=== PATIENT | female | born 1990 | race African-American/Black ===

== ENCOUNTER 2016-12-21 08:18 | Emergency (ER) | payer OTHER ==
[2016-12-21 08:20] VITALS: BP 120/57
--- NOTE | 2016-12-21 08:42 | PHYS DOC ---
Past Medical History Past Medical History: Other Additional Past Medical Histor: ulcers Past Surgical History: No Surgical History Alcohol Use: Occasionally Drug Use: Marijuana Adult General Chief Complaint Chief Complaint: RING REMOVAL HPI HPI Patient is a 26 year old female presents emergency room with a complaint of ringing systolic on her left middle finger and right ring finger since last night. She states she was unable to manually remove them herself. She denies any other concerns at this time. Review of Systems Review of Systems Constitutional: Denies fever or chills [] Eyes: Denies change in visual acuity, redness, or eye pain [] HENT: Denies nasal congestion or sore throat [] Respiratory: Denies cough or shortness of breath [] Cardiovascular: No additional information not addressed in HPI [] GI: Denies abdominal pain, nausea, vomiting, bloody stools or diarrhea [] : Denies dysuria or hematuria [] Musculoskeletal: Denies back pain or joint pain [] Integument: Denies rash or skin lesions [] Neurologic: Denies headache, focal weakness or sensory changes [] Endocrine: Denies polyuria or polydipsia [] Allergies Allergies Allergies Coded Allergies Type Severity Reaction Last Updated Verified No Known Drug Allergies 02/19/14 No Physical Exam Physical Exam Constitutional: Well developed, well nourished, no acute distress, non-toxic appearance. [] HENT: Normocephalic, atraumatic, bilateral external ears normal, oropharynx moist, no oral exudates, nose normal. [] Eyes: PERRLA, EOMI, conjunctiva normal, no discharge. [] Neck: Normal range of motion, no tenderness, supple, no stridor. [] Cardiovascular:Heart rate regular rhythm, no murmur [] Lungs & Thorax: Bilateral breath sounds clear to auscultation [] Abdomen: Bowel sounds normal, soft, no tenderness, no masses, no pulsatile masses. [] Skin: Warm, dry, no erythema, no rash. [] Back: No tenderness, no CVA tenderness. [] Extremities: Right ring finger left ring finger post-ring removal by nurse shows no evidence of skin injury. Flexion and extension function of both the PIPJ and DIPJ's is preserved and normal. Both fingers are neurovascularly intact with capillary refill less than 2 seconds. Neurologic: Alert and oriented X 3, normal motor function, normal sensory function, no focal deficits noted. [] Psychologic: Affect normal, judgement normal, mood normal. [] Current Patient Data Vital Signs Vital Signs Date Time Temp Pulse Resp B/P Pulse Ox O2 Delivery O2 Flow Rate FiO2 12/21/16 08:20 98.6 80 18 98 Room Air 98.6 EKG EKG [] Radiology/Procedures Radiology/Procedures [] Course & Med Decision Making Course & Med Decision Making Pertinent Labs and Imaging studies reviewed. (See chart for details) [] Dragon Disclaimer Dragon Disclaimer This electronic medical record was generated, in whole or in part, using a voice recognition dictation system. Departure Departure Impression: Primary Impression: Foreign body Disposition: HOME, SELF-CARE Condition: IMPROVED Referrals: ELISA VALADEZ MD (PCP) Additional Instructions: 1. In. The rings were removed without injury or skin. There is no evidence of tendon problems to your fingers. There's no evidence of neurovascular problems. 2. Follow-up with your primary care doctor through any questions or concerns about your fingers. SURAJ MONTEZ Dec 21, 2016 08:42
== END 2016-12-21 08:46 | disposition home or self-care (01) ==
LOC: ER 08:18
DX: S60.454A Superficial foreign body of right ring finger, initial encounter (principal); S60.453A Superficial foreign body of left middle finger, initial encounter; F12.10 Cannabis abuse, uncomplicated; W45.8XXA Other foreign body or object entering through skin, initial encounter; Y93.89 Activity, other specified; Y92.89 Other specified places as the place of occurrence of the external cause; Y99.8 Other external cause status
CPT/HCPCS: 99284

== ENCOUNTER 2017-12-19 01:36 | Emergency (ER) | payer OTHER | END 2017-12-19 02:10 | disposition home or self-care (01) | LOC: ER 01:36 | DX: S63.92XA Sprain of unspecified part of left wrist and hand, initial encounter (principal); M79.642 Pain in left hand; M25.532 Pain in left wrist; F12.10 Cannabis abuse, uncomplicated; X58.XXXA Exposure to other specified factors, initial encounter; Y93.89 Activity, other specified; Y99.8 Other external cause status; Y92.89 Other specified places as the place of occurrence of the external cause | CPT/HCPCS: 29125; 73130; 99284 ==

== ENCOUNTER 2018-09-12 06:26 | Emergency (ER) | payer OTHER ==
[~2018-09-12] VITALS: Ht 157.5 cm; Wt 90.7 kg
[2018-09-12 06:26] VITALS: BP 158/87
[2018-09-12] MEDS ORDERED: IBUP-1060 PO (06:40)
[2018-09-12] MEDS ORDERED: AZIT250T6 PO (06:40)
[2018-09-12] MEDS ORDERED: HYDR-3164 PO (06:40)
--- NOTE | 2018-09-12 06:42 | PHYS DOC ---
Past Medical History Past Medical History: Other Additional Past Medical Histor: ulcers Past Surgical History: No Surgical History Alcohol Use: None Drug Use: None Adult General Chief Complaint Chief Complaint: SORE THROAT HPI HPI Patient is a 27 year old female who presents with sore throat. She has been ill over the last 3 days. She complains of primarily a sore throat and some difficulty with swallowing. She also endorses some cough that has been productive of yellow and green sputum. She has no documented fever but does have chills. Her child in the home has also been ill. Patient is otherwise healthy with no chronic conditions. No nausea or vomiting. No abdominal pain. Her last menstrual period was 10 days earlier. Review of Systems Review of Systems Constitutional: Denies fever Eyes: Denies change in visual acuity HENT: Denies nasal congestion or sore throat Respiratory: Denies shortness of breath Cardiovascular: No additional information not addressed in HPI GI: Denies abdominal pain, nausea, vomiting : Denies dysuria or hematuria Musculoskeletal: Denies back pain or joint pain Integument: Denies rash or skin lesions Neurologic: Denies headache All other systems were reviewed and found to be within normal limits, except as documented in this note. Current Medications Current Medications Current Medications Medications (Trade) Dose Ordered Sig/Geraldo Start Time Stop Time Status Last Admin Dose Admin Azithromycin (Zithromax) 500 mg 1X ONCE 09/12/18 06:45 09/12/18 06:46 Allergies Allergies Allergies Coded Allergies Type Severity Reaction Last Updated Verified No Known Drug Allergies 02/19/14 No Physical Exam Physical Exam Constitutional: Well developed, well nourished, no acute distress, non-toxic appearance HENT: Normocephalic, atraumatic, bilateral external ears normal, oropharynx moist, no oral exudates, nose normal, posterior oral pharynx is injected with exudates present Eyes: PERRLA, EOMI, conjunctiva normal, no discharge Neck: Normal range of motion, no tenderness, supple, no stridor, + anterior cervical chain LAD Cardiovascular:Heart rate regular rhythm, no murmur Lungs & Thorax: Bilateral breath sounds clear to auscultation Skin: Warm, dry, no erythema Neurologic: Alert and oriented X 3 Psychologic: Affect normal EKG EKG [] Radiology/Procedures Radiology/Procedures [] Course & Med Decision Making Course & Med Decision Making Pertinent Labs and Imaging studies reviewed. (See chart for details) 06:35: Patient seen and examined. PE suspicious for strep with exudates and injection in posterior oral pharynx. She is given azithromycin 500 mg in the ER and Rx for 250 daily over next four days. Ibuprofen and few norco for severe pain. Opiate precautions discussed. All of her questions answered prior to d/c. Return precautions discussed and patient advised to f/u with PCP or return to ER for any new or worsening symptoms. Megha Disclaimer Megha Disclaimer This electronic medical record was generated, in whole or in part, using a voice recognition dictation system. Departure Departure Impression: Primary Impression: Pharyngitis Disposition: HOME, SELF-CARE Condition: GOOD Patient Instructions: Strep Throat Scripts Hydrocodone/Apap 5-325 (NORCO 5-325 TABLET) 1 Each Tablet 1-2 EACH PO PRN Q6HRS PRN for SEVERE PAIN, #10 as needed for pain Prov: RHODA PABOL DO 09/12/18 Ibuprofen (IBUPROFEN) 800 Mg Tablet 800 MG PO PRN TID PRN for PAIN, #20 TAB take with food or milk to avoid upsetting stomach Prov: RHODA PABLO DO 09/12/18 Azithromycin (AZITHROMYCIN TABLET) 250 Mg Tablet 250 MG PO DAILY for ANTI-BIOTIC for 4 Days, #4 TAB 0 Refills Prov: RHODA PABLO DO 09/12/18 RHODA PABLO DO Sep 12, 2018 06:42
[2018-09-12] MEDS ORDERED: AZITHROMYCIN 250 MG TABLET. PO ONE (06:45)
== END 2018-09-12 06:51 | disposition home or self-care (01) ==
LOC: ER 06:26
DX: J02.9 Acute pharyngitis, unspecified (principal); R13.10 Dysphagia, unspecified; R05 Cough
CPT/HCPCS: 99283; Q0144

== ENCOUNTER 2019-02-12 01:07 | Emergency (ER) | payer OTHER ==
[~2019-02-12] VITALS: Ht 160 cm; Wt 108.9 kg
[~2019-02-12 01:07] MED LIST: AZIT250T6 PO; HYDR-3164 PO; IBUP-1060 PO
[2019-02-12 01:47] VITALS: BP 122/73
[2019-02-12 02:25] LABS: BILIRUBIN,URINE NEGATIVE (NEG); CLARITY,URINE CLEAR; COLOR,URINE YELLOW; NITRITE,URINE NEGATIVE (NEG); PH,URINE 6.5; PROTEIN,URINE NEGATIVE (NEG-TRACE); UROBILINOGEN,URINE 0.2 mg/dL (0.2 mg/dL)
[2019-02-12 02:31] LABS: BACTERIA,URINE MODERATE /HPF (0-FEW); RBC,URINE 0 /HPF (0-2); SQUAMOUS EPITHELIAL CELL,UR FEW /LPF
--- NOTE | 2019-02-12 03:04 | PHYS DOC ---
Past Medical History Past Medical History: Depression, Ectopic , Other Additional Past Medical Histor: ULCERS, SCOLIOSIS Past Surgical History: Other Additional Past Surgical Histo: D&C, FALLOPIAN TUBE REMOVAL Alcohol Use: Occasionally Drug Use: Marijuana Adult General Chief Complaint Chief Complaint: PELVIC PAIN [facility] HPI Patient is a 28 year old female who presents today due to chief complaint of left pelvic pain. Patient states that she was concerned that she had an ectopic in the past. Patient states that she recently started having unprotected sex with a new partner. Patient states that she took a test at home which was negative but then later became positive. Although that safely Review of Systems Review of Systems Constitutional: Denies fever or chills [] Eyes: Denies change in visual acuity, redness, or eye pain [] HENT: Denies nasal congestion or sore throat [] Respiratory: Denies cough or shortness of breath [] Cardiovascular: No additional information not addressed in HPI [] GI: Complains of left pelvic pain : Denies dysuria or hematuria [] Musculoskeletal: Denies back pain or joint pain [] Integument: Denies rash or skin lesions [] Neurologic: Denies headache, focal weakness or sensory changes [] All other systems were reviewed and found to be within normal limits, except as documented in this note. Allergies Allergies Allergies Coded Allergies Type Severity Reaction Last Updated Verified acetaminophen Allergy Unknown 02/12/19 Yes oxycodone Allergy Unknown 02/12/19 Yes Physical Exam Physical Exam Constitutional: Well developed, well nourished, no acute distress, non-toxic appearance. HENT: Normocephalic, atraumatic, normocaphalic Eyes: PERRL, EOMI Neck: Normal range of motion, no tenderness, supple Cardiovascular:Heart rate regular rhythm, no murmur Resp: Bilateral breath sounds clear to auscultation Abdomen: Left otic tenderness Skin: Warm, dry, no erythema, no rash. Back: No tenderness, no CVA tenderness. Extremities: No tenderness, ROM intact, no edema. Neurologic: Alert and oriented X 3, normal motor function, normal sensory function, no focal deficits noted. Psychologic: Affect normal, judgement normal, mood normal. Current Patient Data Vital Signs Vital Signs Date Time Temp Pulse Resp B/P (MAP) Pulse Ox O2 Delivery O2 Flow Rate FiO2 02/12/19 01:47 97.6 64 18 122/73 (89) 98 Room Air 97.6 Lab Values Laboratory Tests Test 02/12/19 01:10 02/12/19 01:33 Urine Collection Type Unknown Urine Color Yellow Urine Clarity Clear Urine pH 6.5 Urine Specific [place] 1.010 Urine Protein Negative mg/dL (NEG-TRACE) Urine Glucose (UA) Negative mg/dL (NEG) Urine Ketones (Stick) Negative mg/dL (NEG) Urine Blood Negative (NEG) Urine Nitrite Negative (NEG) Urine Bilirubin Negative (NEG) Urine Urobilinogen Dipstick 0.2 mg/dL (0.2 mg/dL) Urine Leukocyte Esterase Trace (NEG) Urine RBC 0 /HPF (0-2) Urine WBC 1-4 /HPF (0-4) Urine Squamous Epithelial Cells Few /LPF Urine Bacteria Moderate /HPF (0-FEW) POC Urine HCG, Qualitative Hcg negative (Negative) EKG EKG [] Radiology/Procedures Radiology/Procedures [] Course & Med Decision Making Course & Med Decision Making Pertinent Labs reviewed. (See chart for details) Ordered UA, urine , ultrasound of the pelvis. Urine is negative. UA does not show UTI. Once patient follow that she was not she wants to leave the ED. Patient does not want ultrasound but states that she will follow-up with her PCP as an outpatient. Patient does not want any further testing.Discussed results and plan of care with patient. Patient is instructed to follow up with PCP in one to 2 days. Appropriate discharge instructions given to patient to return to the ED or to seek immediate medical evaluation. Dragon Disclaimer Dragon Disclaimer This electronic medical record was generated, in whole or in part, using a voice recognition dictation system. Departure Departure Impression: Primary Impression: Pelvic pain Ruled Out: Disposition: HOME, SELF-CARE Condition: STABLE Patient Instructions: Pelvic Pain, Female LA GILL DO February 12, 2019 03:03
--- NOTE | 2019-02-12 03:25 | RAD ---
Indication:Left lower quadrant pain for one week. History of left ectopic and tubal removal. TECHNIQUE: Grayscale, color Doppler and spectral waveform images of the pelvis obtained. COMPARISON: None FINDINGS: The uterus is anteverted and measures 10.0 x 4.1 x 5.3 cm. Endometrial stripe measures 8 mm in thickness. No endometrial vascularity. Nabothian cysts are seen in the cervix. Right ovary measures 1.7 x 2.8 x 1.1 cm and shows evidence of blood flow. Left ovary measures 3.5 x 2.1 x 2.8 cm with multiple follicles and shows evidence of blood flow. There is a thick walled centrally cystic lesion measuring 1.8 x 2.0 x 1.0 cm. No free pelvic fluid. IMPRESSION: 1. Bilateral ovaries demonstrate evidence of blood flow. 2. Likely Complex cyst/hemorrhagic cyst in the left ovary. Follow-up ultrasound in 8-12 weeks recommended. Electronically signed by: Stevie Sims DO (02/12/2019 3:22 AM) [facility]
== END 2019-02-12 03:12 | disposition home or self-care (01) ==
LOC: ER 01:07
DX: R10.2 Pelvic and perineal pain (principal); F32.9 Major depressive disorder, single episode, unspecified; Z88.6 Allergy status to analgesic agent; Z88.5 Allergy status to narcotic agent
CPT/HCPCS: 76830; 76856; 81001; 81025; 87086; 87186; 99285-25

== ENCOUNTER → 2021-01-23 | Outpatient (CLI) | payer OTHER ==
--- NOTE | 2021-01-23 11:55 | KCIC ---
Exam Date: 01/23/2021 11:05 AM XR LUMBAR SPINE 4+V, XR HIP (WITH OR WITHOUT PELVIS) 1 VIEW Indication: Reason: Acute LBP w/bilateral hip pain. No known injury. / Spl. Instructions: / History: FINDINGS/ IMPRESSION: Lumbar spine: There is levoscoliosis of the lumbar spine. There is no spondylolisthesis. The vertebral body height s are maintained without evidence of compression fracture. Disc spaces are maintained. No pars defec t is seen on either side. The SI joints appear normal. The visualized soft tissues are within normal limits. Pelvis and bilateral hips: No acute fracture or dislocation. Alignment and joint spaces are maintained. Calcifications in the pe lvis are consistent with phleboliths. Soft tissues are otherwise within normal limits. Electronically signed by: Garrett Ahumada MD (01/23/2021 11:52 AM) [id number]
== END ==
LOC: KCIC 11:00
PROVIDERS: ATTEND Family Medicine
DX: M54.5 Low back pain (principal); M25.552 Pain in left hip; M25.551 Pain in right hip
CPT/HCPCS: 72110; 73521

== ENCOUNTER 2021-01-29 12:57 | Emergency (ER) | payer OTHER ==
[~2021-01-29] VITALS: Ht 160 cm; Wt 110.0 kg
[2021-01-29 14:52] LABS: BILIRUBIN,URINE NEGATIVE (NEG); CLARITY,URINE CLOUDY; COLOR,URINE YELLOW; NITRITE,URINE NEGATIVE (NEG); PROTEIN,URINE NEGATIVE (NEG-TRACE); UROBILINOGEN,URINE 0.2 mg/dL (0.2 mg/dL)
[2021-01-29 15:00] LABS: RBC,URINE 0 /HPF (0-2); WBC,URINE >40 /HPF (0-4)
[2021-01-29 15:01] LABS: BACTERIA,URINE FEW /HPF (0-FEW)
--- NOTE | 2021-01-29 16:49 | RAD ---
Exam: Ultrasound OB less than 14 weeks Indication: Vaginal bleeding and Technique: Real-time grayscale and color Doppler images of the pelvis were obtained by the department medicare specialist. Comparisons: None FINDINGS: Uterus measures 9 x 8 x 6 cm. Within the endometrium there is a gestational sac with internal yolk sa c and pole. pole measures 4 mm. This corresponds to 6 weeks 0 days gestation. heart rate is measured at 82 bpm. Right ovary is not identified. Left ovary measures 4.1 x 3.1 x 2.4 cm. Vascular flow identified within the left ovary. No free fluid identified in the pelvis. IMPRESSION: 1. Single live intrauterine gestation which measures 6 weeks 0 days by current ultrasound. Correlate with LMP. 2. Dedicated survey is recommended to 18-20 weeks gestation. Electronically signed by: Raul Agarwal MD (01/29/2021 4:46 PM) YOHANNES
[2021-01-29 16:59] LABS: BASO % 1 % (0-3); EOS # 0.2 x10^3/uL (0.0-0.7); EOS % 3 % (0-3); HEMATOCRIT 36.4 % (36.0-47.0); HEMOGLOBIN 11.9 g/dL (12.0-15.5); LYMPH # 2.1 x10^3/uL (1.0-4.8); LYMPH % 29 % (24-48); MEAN CORPUSCULAR HEMOGLOBIN 28 pg (25-35); MEAN CORPUSCULAR HGB CONC 33 g/dL (31-37); MEAN CORPUSCULAR VOLUME 85 fL (79-100); MONO # 0.8 x10^3/uL (0.0-1.1); MONO % 11 % (0-9); NEUT % 56 % (31-73); PLATELET COUNT 377 x10^3/uL (140-400); RED BLOOD COUNT 4.26 x10^6/uL (3.50-5.40); RED CELL DISTRIBUTION WIDTH 16.6 % (11.5-14.5); WHITE BLOOD COUNT 7.1 x10^3/uL (4.0-11.0)
[2021-01-29 17:10] LABS: CALCIUM 8.7 mg/dL (8.5-10.1); CREATININE 0.8 mg/dL (0.6-1.0); GFR 103.3; POTASSIUM 3.7 mmol/L (3.5-5.1)
[2021-01-29 17:16] LABS: ALBUMIN 2.9 g/dL (3.4-5.0); ALBUMIN/GLOBULIN RATIO 0.6 (1.0-1.7); TOTAL BILIRUBIN 0.3 mg/dL (0.2-1.0); TOTAL PROTEIN 7.4 g/dL (6.4-8.2)
[2021-01-29 17:55] VITALS: BP 149/80
[2021-01-29] MEDS ORDERED: CEPH500T PO (18:05)
--- NOTE | 2021-01-29 18:05 | PHYS DOC ---
Past Medical History Past Medical History: Arthritis, Depression, Ectopic , Other Additional Past Medical Histor: ULCERS, SCOLIOSIS Past Surgical History: Other Additional Past Surgical Histo: D&C,L FALLOPIAN TUBE REMOVAL Smoking Status: Never Smoker Alcohol Use: Occasionally Drug Use: Marijuana General Adult EDM: Chief Complaint: ABDOMINAL PAIN IN HPI: HPI: Patient is a 30 year old female 4 para 2 with 2 ectopic pregnancies who presents to the ED today complaining of cramping intermittent mild right lower quadrant pain that she states has been going on for days. Patient not specific at how many days. She states she has had similar pain multiple times before. She states she did a home test today and it was positive, her last menstrual cycle she states was December 18. Patient states she had a little bit of spotting today. Denies this being the worst pain in her life. Denies anything specifically exacerbating or relieving her pain. Review of Systems: Review of Systems: Constitutional: Denies fever or chills. [] GI: Reports right lower quadrant cramping pain, denies nausea, vomiting, bloody stools or diarrhea. [] : Denies dysuria. [] Musculoskeletal: Denies back pain or joint pain. [] Integument: Denies rash. [] Neurologic: Denies headache, focal weakness or sensory changes. [] Psychiatric: Denies depression or anxiety. [] Heart Score: C/O Chest Pain: N/A Risk Factors: Risk Factors: DM, Current or recent (<one month) smoker, HTN, HLP, family his tory of CAD, obesity. Risk Scores: Score 0 - 3: 2.5% MACE over next 6 weeks - Discharge Home Score 4 - 6: 20.3% MACE over next 6 weeks - Admit for Clinical Observation Score 7 - 10: 72.7% MACE over next 6 weeks - Early Invasive Strategies Allergies: Allergies: Allergies Coded Allergies Type Severity Reaction Last Updated Verified acetaminophen Allergy Unknown 02/12/19 Yes oxycodone Allergy Unknown 02/12/19 Yes Physical Exam: PE: Constitutional: Well developed, well nourished, no acute distress, non-toxic appearance. [] Abdomen: Bowel sounds normal, soft, no tenderness, no masses, no pulsatile masses. [] Skin: Warm, dry, no erythema, no rash. [] Back: No tenderness, no CVA tenderness. [] Extremities: No tenderness, no cyanosis, no clubbing, ROM intact, no edema. [] Neurologic: Alert and oriented X 3, normal motor function, normal sensory function, no focal deficits noted. [] Psychologic: Affect normal, judgement normal, mood normal. [] Current Patient Data: Labs: Laboratory Tests Test 01/29/21 12:55 01/29/21 14:39 01/29/21 16:50 Urine Collection Type Unknown Urine Color Yellow Urine Clarity Cloudy Urine pH 6.0 (<5.0-8.0) Urine Specific [place] 1.025 (1.000-1.030) Urine Protein Negative mg/dL (NEG-TRACE) Urine Glucose (UA) Negative mg/dL (NEG) Urine Ketones (Stick) 15 mg/dL (NEG) Urine Blood Negative (NEG) Urine Nitrite Negative (NEG) Urine Bilirubin Negative (NEG) Urine Urobilinogen Dipstick 0.2 mg/dL (0.2 mg/dL) Urine Leukocyte Esterase Large (NEG) Urine RBC 0 /HPF (0-2) Urine WBC >40 /HPF (0-4) Urine Squamous Epithelial Cells Few /LPF Urine Bacteria Few /HPF (0-FEW) Urine Mucus Slight /LPF POC Urine HCG, Qualitative Hcg positive (Negative) White Blood Count 7.1 x10^3/uL (4.0-11.0) Red Blood Count 4.26 x10^6/uL (3.50-5.40) Hemoglobin 11.9 g/dL (12.0-15.5) L Hematocrit 36.4 % (36.0-47.0) Mean Corpuscular Volume 85 fL (79-100) Mean Corpuscular Hemoglobin 28 pg (25-35) Mean Corpuscular Hemoglobin Concent 33 g/dL (31-37) Red Cell Distribution Width 16.6 % (11.5-14.5) H Platelet Count 377 x10^3/uL (140-400) Neutrophils (%) (Auto) 56 % (31-73) Lymphocytes (%) (Auto) 29 % (24-48) Monocytes (%) (Auto) 11 % (0-9) H Eosinophils (%) (Auto) 3 % (0-3) Basophils (%) (Auto) 1 % (0-3) Neutrophils # (Auto) 4.0 x10^3/uL (1.8-7.7) Lymphocytes # (Auto) 2.1 x10^3/uL (1.0-4.8) Monocytes # (Auto) 0.8 x10^3/uL (0.0-1.1) Eosinophils # (Auto) 0.2 x10^3/uL (0.0-0.7) Basophils # (Auto) 0.0 x10^3/uL (0.0-0.2) Maternal Serum HCG Beta Subunit 9225 mIU/mL (0-5) H Sodium Level 142 mmol/L (136-145) Potassium Level 3.7 mmol/L (3.5-5.1) Chloride Level 107 mmol/L (98-107) Carbon Dioxide Level 26 mmol/L (21-32) Anion Gap 9 (6-14) Blood Urea Nitrogen 11 mg/dL (7-20) Creatinine 0.8 mg/dL (0.6-1.0) Estimated GFR (Cockcroft-Gault) 103.3 BUN/Creatinine Ratio 14 (6-20) Glucose Level 83 mg/dL (70-99) Calcium Level 8.7 mg/dL (8.5-10.1) Total Bilirubin 0.3 mg/dL (0.2-1.0) Aspartate Amino Transferase (AST) 22 U/L (15-37) Alanine Aminotransferase (ALT) 41 U/L (14-59) Alkaline Phosphatase 82 U/L (46-116) Total Protein 7.4 g/dL (6.4-8.2) Albumin 2.9 g/dL (3.4-5.0) L Albumin/Globulin Ratio 0.6 (1.0-1.7) L Laboratory Tests 01/29/21 16:50 Laboratory Tests 01/29/21 16:50 Vital Signs: Vital Signs Date Time Temp Pulse Resp B/P (MAP) Pulse Ox O2 Delivery O2 Flow Rate FiO2 01/29/21 15:55 98.7 94 20 156/81 (106) 100 Room Air 98.7 EKG: EKG: [] Radiology/Procedures: Radiology/Procedures: []PROCEDURE: OB <14 WKS W/TV Exam: Ultrasound OB less than 14 weeks Indication: Vaginal bleeding and Technique: Real-time grayscale and color Doppler images of the pelvis were obtained by the department boom cat operator. Comparisons: None FINDINGS: Uterus measures 9 x 8 x 6 cm. Within the endometrium there is a gestational sac with internal yolk sac and pole. pole measures 4 mm. This corresponds to 6 weeks 0 days gestation. heart rate is measured at 82 bpm. Right ovary is not identified. Left ovary measures 4.1 x 3.1 x 2.4 cm. Vascular flow identified within the left ovary. No free fluid identified in the pelvis. IMPRESSION: 1. Single live intrauterine gestation which measures 6 weeks 0 days by current ultrasound. Correlate with LMP. 2. Dedicated survey is recommended to 18-20 weeks gestation. Electronically signed by: Raul Ortiz MD (01/29/2021 4:46 PM) [facility] DICTATED and SIGNED BY: RAUL ORTIZ MD DATE: 01/29/21 [id number] 0 Course & Med Decision Making: Course & Med Decision Making Pertinent Labs and Imaging studies reviewed. (See chart for details) This is a 30-year-old female patient presenting today complaining of abdominal pain in . Last mental cycle was December 18. Positive urine hCG. Beta-hCG 9225. Urine analysis positive for UTI. Blood group A+. CBC with a normal WBC, hemoglobin 11.9 hematocrit is normal OB ultrasound shows singel live intrauterine gestation HR 82, 6 weeks 0 days Patient discharged on cephalexin. Encouraged to follow-up with OB. Provided return precautions. Pelvic rest also recommended if she is spotting or bleeding Dragon Disclaimer: Dragon Disclaimer: This electronic medical record was generated, in whole or in part, using a voice recognition dictation system. Departure Departure Impression: Primary Impression: Abdominal pain in Qualified Codes: O26.891 - Other specified related conditions, first trimester; R10.9 - Unspecified abdominal pain Additional Impression: Urinary tract infection Qualified Codes: N39.0 - Urinary tract infection, site not specified Disposition: 01 HOME / SELF CARE / HOMELESS Condition: STABLE Referrals: Di THOMAS MD (PCP) JAIDEN COOK MD follow up with your OBGYN as soon as possible Patient Instructions: Abdominal Pain, - Urinary Tract Infection Additional Instructions: You were evaluated in the emergency room, your ultrasound shows you are 6 weeks today. You have urinary tract infection. Please take the prescribed antibiotics until completed. Please maintain pelvic rest that includes no sex, no heavy lifting, no strenuous activities until you see the BRAND ATTENDANT or the bleeding/spotting has stopped. Come back to the ED at any point symptoms worsen. You also have urinary tract infection, ensure you complete your antibiotics Scripts Cephalexin (CEPHALEXIN) 500 Mg Tablet 1 TAB PO BID, #14 TAB Prov: TANJA LEDEZMA APRN 01/29/21 TANJA LEDEZMA APRN Jan 29, 2021 18:05
== END 2021-01-29 18:26 | disposition home or self-care (01) ==
LOC: ER 12:57
DX: O23.41 Unspecified infection of urinary tract in pregnancy, first trimester (principal); R10.31 Right lower quadrant pain; M19.90 Unspecified osteoarthritis, unspecified site; F32.9 Major depressive disorder, single episode, unspecified; F12.90 Cannabis use, unspecified, uncomplicated; Z98.890 Other specified postprocedural states; Z88.5 Allergy status to narcotic agent; Z88.8 Allergy status to other drugs, medicaments and biological substances; Z3A.01 Less than 8 weeks gestation of pregnancy
CPT/HCPCS: 36415; 76801; 76817; 80053; 81001; 81025; 84702; 85025; 86850; 86900; 86901; 87086; 99284

== ENCOUNTER 2021-05-23 08:37 | Emergency (ER) | payer OTHER ==
[~2021-05-23] VITALS: Ht 160 cm; Wt 113.4 kg
[~2021-05-23 08:37] MED LIST changes: +CEPH500T PO
[2021-05-23 09:05] VITALS: BP 152/92
[2021-05-23] MEDS ORDERED: IBUPROFEN 400 MG TABLET. PO ONE (10:00)
[2021-05-23 10:24] LABS: BILIRUBIN,URINE NEGATIVE (NEG); CLARITY,URINE CLEAR; COLOR,URINE YELLOW; NITRITE,URINE NEGATIVE (NEG); PROTEIN,URINE NEGATIVE (NEG-TRACE); U PREG PATIENT NEGATIVE (NEG); UROBILINOGEN,URINE 0.2 mg/dL (0.2 mg/dL)
--- NOTE | 2021-05-23 10:30 | RAD ---
XR CHEST 1V History: Reason: cough, fever, COVID-19 EXPOSURE / Spl. Instructions: / History: Comparison: None. Findings: Mild ill-defined left mid and bibasilar opacities. No pleural effusion. No pneumothorax. Normal heart size. Impression: 1. Mild ill-defined left mid and bibasilar opacities, may represent atelectasis or infiltrates inclu ding viral pneumonia. Electronically signed by: Hay Cee DO (05/23/2021 10:27 AM) [id number]
[2021-05-23 10:38] LABS: RBC,URINE TNTC /HPF (0-2)
[2021-05-23 10:39] LABS: BACTERIA,URINE MANY /HPF (0-FEW)
[2021-05-23 10:46] LABS: TRICHOMONAS,URINE PRESENT
--- NOTE | 2021-05-23 12:04 | PHYS DOC ---
Past Medical History Past Medical History: Arthritis, Depression, Ectopic , Other Additional Past Medical Histor: ULCERS, SCOLIOSIS Past Surgical History: Other Additional Past Surgical Histo: L fallopian tube removed Smoking Status: Never Smoker Alcohol Use: Occasionally Drug Use: Marijuana General Adult EDM: Chief Complaint: FLU SYMPTOM HPI: HPI: Patient is a 30 year old female who present to ER with fever cough for 2 days. Patient said her who she was exposed to was tested positive for COVID-19 yesterday. Patient denies any trouble breathing, no chest pain, no abdominal pain, no nausea vomiting. Review of Systems: Review of Systems: Constitutional: Positive for fever Eyes: Denies change in visual acuity. [] HENT: Denies nasal congestion or sore throat. [] Respiratory: Positive for cough, no trouble with breathing Cardiovascular: Denies chest pain or edema. [] GI: Denies abdominal pain, nausea, vomiting, bloody stools or diarrhea. [] : Denies dysuria. [] Musculoskeletal: Denies back pain or joint pain. [] Integument: Denies rash. [] Neurologic: Denies headache, focal weakness or sensory changes. [] Endocrine: Denies polyuria or polydipsia. [] Lymphatic: Denies swollen glands. [] Psychiatric: Denies depression or anxiety. [] Heart Score: C/O Chest Pain: N/A Risk Factors: Risk Factors: DM, Current or recent (<one month) smoker, HTN, HLP, family history of CAD, obesity. Risk Scores: Score 0 - 3: 2.5% MACE over next 6 weeks - Discharge Home Score 4 - 6: 20.3% MACE over next 6 weeks - Admit for Clinical Observation Score 7 - 10: 72.7% MACE over next 6 weeks - Early Invasive Strategies Current Medications: Current Medications Medications (Trade) Dose Ordered Sig/Geraldo Start Time Stop Time Status Last Admin Dose Admin Ibuprofen (Motrin) 800 mg 1X ONCE 05/23/21 10:00 05/23/21 10:01 DC 05/23/21 09:52 800 MG Allergies: Allergies: Allergies Coded Allergies Type Severity Reaction Last Updated Verified acetaminophen Allergy Unknown 02/12/19 Yes oxycodone Allergy Unknown 02/12/19 Yes Physical Exam: PE: Constitutional: Well developed, well nourished, no acute distress, non-toxic appearance. [] HENT: Normocephalic, atraumatic, bilateral external ears normal, oropharynx mois t, no oral exudates, nose normal. [] Eyes: PERRLA, EOMI, conjunctiva normal, no discharge. [] Neck: Normal range of motion, no tenderness, supple, no stridor. [] Cardiovascular:Heart rate regular rhythm, no murmur [] Lungs & Thorax: Bilateral breath sounds clear to auscultation [] Abdomen: Bowel sounds normal, soft, no tenderness, no masses, no pulsatile masses. [] Skin: Warm, dry, no erythema, no rash. [] Back: No tenderness, no CVA tenderness. [] Extremities: No tenderness, no cyanosis, no clubbing, ROM intact, no edema. [] Neurologic: Alert and oriented X 3, normal motor function, normal sensory function, no focal deficits noted. [] Psychologic: Affect normal, judgement normal, mood normal. [] Current Patient Data: Labs: Laboratory Tests Test 05/23/21 09:55 05/23/21 10:00 SARS-CoV-2 Antigen (Rapid) Positive (NEGATIVE) *A Urine Collection Type Void Urine Color Yellow Urine Clarity Clear Urine pH 6.0 (<5.0-8.0) Urine Specific [place] 1.015 (1.000-1.030) Urine Protein Negative mg/dL (NEG-TRACE) Urine Glucose (UA) Negative mg/dL (NEG) Urine Ketones (Stick) 15 mg/dL (NEG) Urine Blood Large (NEG) Urine Nitrite Negative (NEG) Urine Bilirubin Negative (NEG) Urine Urobilinogen Dipstick 0.2 mg/dL (0.2 mg/dL) Urine Leukocyte Esterase Trace (NEG) Urine RBC Tntc /HPF (0-2) Urine WBC 5-10 /HPF (0-4) Urine Squamous Epithelial Cells Mod /LPF Urine Bacteria Many /HPF (0-FEW) Urine Mucus Mod /LPF Urine Trichomonas Present Urine Test Negative (NEG) Vital Signs: Vital Signs Date Time Temp Pulse Resp B/P (MAP) Pulse Ox O2 Delivery O2 Flow Rate FiO2 05/23/21 09:05 100.8 100 20 152/92 100 Room Air 100.8 EKG: EKG: [] Radiology/Procedures: Radiology/Procedures: [][facility] [address] [place] [address] IMAGING REPORT Signed PATIENT: DOLORES AGRAWAL LACCOUNT: [id number] : 1990 LOCATION: ER AGE: 30 SEX: F EXAM STATUS: REG ER ORD. PHYSICIAN: MUNIR CORONADO DO REASON: cough, fever, COVID-19 EXPOSURE PROCEDURE: CHEST AP ONLY XR CHEST 1V History: Reason: cough, fever, COVID-19 EXPOSURE / Spl. Instructions: / History: Comparison: None. Findings: Mild ill-defined left mid and bibasilar opacities. No pleural effusion. No pneumothorax. Normal heart size. Impression: 1. Mild ill-defined left mid and bibasilar opacities, may represent atelectasis or infiltrates including viral pneumonia. Electronically signed by: Hay Cee DO (05/23/2021 10:27 AM) [id number] DICTATED and SIGNED BY: HAY CEE DO DATE: 05/23/21 [id number] Course & Med Decision Making: Course & Med Decision Making Pertinent Labs and Imaging studies reviewed. (See chart for details) Patient vital signs was stable, chest x-ray showed some infiltration, patient was tested positive for COVID-19. Patient did not require to be admitted to hospital because her oxygen saturation 100% room air Dragon Disclaimer: Dragon Disclaimer: This electronic medical record was generated, in whole or in part, using a voice recognition dictation system. Departure Departure Impression: Primary Impression: Pneumonia due to COVID-19 virus Disposition: 01 HOME / SELF CARE / HOMELESS Condition: STABLE Referrals: Di THOMAS MD (PCP) Follow up with your doctor as needed Patient Instructions: Pneumonia, Adult Additional Instructions: You have been tested for or diagnosed with COVID-19. It is an infection caused by a new type of coronavirus. COVID-19 will cause cold-like or mild flu symptoms in most. It can cause more severe symptoms like problems breathing in some. There is no treatment for COVID-19. The body will clear the infection over time. Self-care will help to ease discomfort. Steps to Take: Self-Care Rest as needed. Healthy habits may help you feel better. Steps include: Choose healthy foods including fruits and vegetables. Drink water throughout the day. Get plenty of sleep each night. If you smoke, try to quit. It may ease breathing. Avoid alcohol. Keep Others Healthy The virus can spread to others. Droplets are released every time you sneeze or cough. The droplets can get into the mouth, nose, or eyes of people near you and lead to infection. To lower the chances of spreading COVID-19 to others: Stay at home until your doctor has said it is safe to leave. If you tested posi tive this will mean staying isolated until both of the following are true: At least 7 days have passed since the start of illness. You are free of fever for at least 72 hours without the use of medicine. During this time: - Avoid public areas, events, or transportation. Do not return to work or school until your doctor has said it is safe to do so. - Call ahead if you need to go to a medical center. Let them know you may have COVID-19. It will help them guide you where to go. They may also ask you to wear a facemask when you come to the office. - If you call for emergency medical services, let them know you may have COVID-19. While at home: - Try to avoid close contact with others. Stay about 6 feet away. - If possible, spend most of your time in a separate room from others. - Use a face mask if you will be in close contact with others such as sharing a room or vehicle. - Have someone wipe down common surfaces in the home. Use household tunneling machine operator every day on areas like doorknobs, counters, or sinks. - Cough or sneeze into a tissue. Throw the tissue away right after use. If a tissue is not available, cough or sneeze into your elbow. - Wash your hands often. Wash them after sneezing or coughing. Use soap and water and wash for at least 20 seconds. Alcohol based hand fur dry cleaner can be used if soap and water is not available. - Do not prepare food for others. Avoid sharing personal items like forks, spoons, or toothbrushes. - Avoid close contact with pets while you are sick. There is no evidence of the virus passing to pets. This is a safety step until more is known about this virus. Isolation can be frustrating. Social interaction can help. Keep in touch with friends and family through phone and tech options. You can still interact with others in your home, just keep a safe distance of about 6 feet. Follow-up: Your doctors office will check in with you to see if there are any changes in your health. You may be asked to keep track of symptoms to share with them. They will also let you know when you are clear to be in public again. Problems to Look Out For: Contact your doctor if your recovery is not going as you expect. Get emergency care if you have problems such as: - Trouble breathing - Nonstop chest pain or pressure - Changes in awareness, confusion, or problems waking - Lips or face have bluish color - Worsening of symptoms If you think you have an emergency, call for emergency medical services right away. As taken from [facility] Prednisone (PREDNISONE) 20 Mg Tablet 1 TAB PO DAILY for 10 Days, #10 TAB Prov: MUNIR CORONADO DO 05/23/21 Azithromycin (ZITHROMAX) 250 Mg Tablet 1 PKG PO UD, #6 TAB Prov: MUNIR CORONADO DO 05/23/21 MUNIR CORONADO DO May 23, 2021 12:04
[2021-05-23] MEDS ORDERED: AZIT250T PO (12:13)
[2021-05-23] MEDS ORDERED: PRED20TA PO (12:13)
== END 2021-05-23 12:27 | disposition home or self-care (01) ==
LOC: ER 08:37
DX: U07.1 COVID-19 (principal); J12.82 Pneumonia due to coronavirus disease 2019; Z88.5 Allergy status to narcotic agent; Z88.6 Allergy status to analgesic agent
CPT/HCPCS: 71045; 81001; 81025; 87086; 87426; 99284

== ENCOUNTER 2021-09-03 18:07 | Emergency (ER) | payer SELFPAY ==
[~2021-09-03] VITALS: Ht 160 cm; Wt 100.0 kg
[~2021-09-03 18:07] MED LIST changes: +AZIT250T PO; +PRED20TA PO
[2021-09-03 18:34] LABS: BILIRUBIN,URINE NEGATIVE (NEG); CLARITY,URINE CLEAR; COLOR,URINE YELLOW; NITRITE,URINE POSITIVE (NEG); PH,URINE 6.5 (<5.0-8.0); PROTEIN,URINE NEGATIVE (NEG-TRACE)
--- NOTE | 2021-09-03 18:53 | PHYS DOC ---
Past Medical History Past Medical History: Arthritis, Depression, Ectopic , Other Additional Past Medical Histor: ULCERS, SCOLIOSIS (TANJA LEDEZMA POULTRY HUSBANDRY TEACHER) Past Surgical History: Other Additional Past Surgical Histo: L fallopian tube removed (TANJA LEDEZMA POULTRY HUSBANDRY TEACHER) Smoking Status: Never Smoker Alcohol Use: None Drug Use: Marijuana (TANJA LEDEZMA POULTRY HUSBANDRY TEACHER) General Adult EDM: Chief Complaint: VAGINAL BLEEDING HPI: HPI: Patient is a 30 year old female 5 para 1, 2 ectopic pregnancies, 1 miscarriage, who presents to the ED today complaining of slight lower abdominal cramping that began yesterday, patient is also complaining of spotting that began 1 week ago. Patient denies any urgency, frequency or dysuria. She states she has an appointment with her ROBOT OPERATOR on Friday this week. (TANJA LEDEZMA POULTRY HUSBANDRY TEACHER) Review of Systems: Review of Systems: Constitutional: Denies fever or chills. [] GI: Reports cramping and spotting nausea, vomiting, bloody stools or diarrhea. [] : Denies dysuria. [] Musculoskeletal: Denies back pain or joint pain. [] Integument: Denies rash. [] Neurologic: Denies headache, focal weakness or sensory changes. [] Psychiatric: Denies depression or anxiety. [] (TANJA LEDEZMA POULTRY HUSBANDRY TEACHER) Heart Score: C/O Chest Pain: N/A Risk Factors: Risk Factors: DM, Current or recent (<one month) smoker, HTN, HLP, family history of CAD, obesity. Risk Scores: Score 0 - 3: 2.5% MACE over next 6 weeks - Discharge Home Score 4 - 6: 20.3% MACE over next 6 weeks - Admit for Clinical Observation Score 7 - 10: 72.7% MACE over next 6 weeks - Early Invasive Strategies (TANJA LEDEZMA POULTRY HUSBANDRY TEACHER) Allergies: Allergies: Allergies Coded Allergies Type Severity Reaction Last Updated Verified acetaminophen Allergy Intermediate 09/03/21 Yes oxycodone Allergy Intermediate 09/03/21 Yes (TANJA LEDEZMA POULTRY HUSBANDRY TEACHER) Physical Exam: PE: Constitutional: Well developed, well nourished, no acute distress, non-toxic appearance. [] Abdomen: Bowel sounds normal, soft, no tenderness, no masses, no pulsatile masses. [] Pelvic exam External pelvic appears normal, cervix is visualized, closed, no CMT, no adnexal tenderness, small amount of white discharge in the vaginal vault Skin: Warm, dry, no erythema, no rash. [] Back: No tenderness, no CVA tenderness. [] Extremities: No tenderness, no cyanosis, no clubbing, ROM intact, no edema. [] Neurologic: Alert and oriented X 3, normal motor function, normal sensory function, no focal deficits noted. [] Psychologic: Affect normal, judgement normal, mood normal. [] (TANJA LEDEZMA POULTRY HUSBANDRY TEACHER) Current Patient Data: Vital Signs: Vital Signs Date Time Temp Pulse Resp B/P (MAP) Pulse Ox O2 Delivery O2 Flow Rate FiO2 09/03/21 18:18 97.8 60 16 146/76 (99) 98 Room Air 97.8 (TANJA LEDEZMA POULTRY HUSBANDRY TEACHER) EKG: EKG: [] (TANJA LEDEZMA POULTRY HUSBANDRY TEACHER) Radiology/Procedures: Radiology/Procedures: []PROCEDURE: OB TRANSVAG EXAMINATION: US OB TRANSVAGINAL (FIRST TRIMESTER PELVIC ULTRASOUND) CLINICAL HISTORY: Vaginal bleeding and abdominal pain in TECHNIQUE: Sonography of the pelvis was performed by transabdominal and transvaginal techniques. COMPARISON: None. FINDINGS: Uterine and ovarian measurements are based on technologist reporting as not all measurements are documented on the available images. Uterus: - Orientation: Anteverted - Size: 10.7 x 7.0 x 5.8 cm - Myometrium: 2 fibroids measuring up to 1.3 cm. - Cervix: Unremarkable Gestation: - Intrauterine Gestational Sac: Single present; Amniotic fluid volume subjectively within normal limits - Yolk Sac: Present - Embryo: Single present - [place] Rump Length: 1.1 cm, corresponding gestational age 7 weeks 1 days - Heart Rate: 155 bpm - Perigestational Hemorrhage: Absent Right Ovary: - Size: 3.2 x 1.3 x 1.5 cm - Normal sonographic appearance and blood flow. Left Ovary: - Size: 2.5 x 2.4 x 2.2 cm - Normal sonographic appearance and blood flow. Pelvic Free Fluid: Absent IMPRESSION: Single, live intrauterine gestation. Estimated Gestational Age: 7 weeks 1 day with estimated date of delivery 04/21/2022 by crown rump length. Electronically signed by: Lokesh Munson DO (09/03/2021 8:22 PM) [facility] DICTATED and SIGNED BY: LOKESH MUNSON DO DATE: 09/03/[id number] 0 (TANJA LEDEZMA APRN) Course & Med Decision Making: Course & Med Decision Making Pertinent Labs and Imaging studies reviewed. (See chart for details) This is a 30-year-old female patient 5 para 1, 2 ectopic 1 mi scarriage presenting today complaining of abdominal cramping since yesterday and spotting for 1 week. Blood type A+ Positive urine hCG, beta-hCG 89,095, CBC with no acute findings, CMP with potassium of 3.3. Patient encouraged to increase her dietary potassium intake. Urine positive for UTI, positive for trichomonas. Wet prep also positive for trichomonas and BV. Patient was given Flagyl in the ED and Rocephin. OB ultrasound noted for an IUP 7 weeks 1 day heart rate 155. Yolk sac seen. Bilateral ovaries flow also noted. Noted for 2 fibroids in the uterus. Discharged on azithromycin to cover her for the other STDs and cephalexin, she has an appointment with her ROBOT OPERATOR on Friday this week. Provided instructions to maintain pelvic rest until seen by OB. Provided return precautions. (TANJA LEDEZMA APRN) Course & Med Decision Making Patients Care and treatment plan provided by ER Nurse Practitioner. I was available for consult. Patient's chart reviewed. (PIERRE WITT DO) Megha Disclaimer: Megha Disclaimer: This electronic medical record was generated, in whole or in part, using a voice recognition dictation system. (TANJA LEDEZMA APRN) Departure Departure Impression: Primary Impression: Abdominal pain in Qualified Codes: O26.891 - Other specified related conditions, first trimester; R10.9 - Unspecified abdominal pain Additional Impressions: Trichomonas vaginitis Urinary tract infection during Qualified Codes: O23.41 - Unspecified infection of urinary tract in , first trimester Threatened miscarriage Bacterial vaginosis Disposition: HOME / SELF CARE / HOMELESS Condition: STABLE Referrals: Di THOMAS MD (PCP) Follow-up with your ROBOT OPERATOR on Friday Patient Instructions: - Urinary Tract Infection, Trichomoniasis-Brief Additional Instructions: You were evaluated in the emergency room for abdominal pain in as well as spotting. You are currently 7 weeks 1 day. You tested positive for urinary tract infection, trichomonas which is a sexually transmitted disease and bacterial vaginosis. Please complete the rest of the prescribed antibiotics. Please do not have any intercourse until seen by the ROBOT OPERATOR and the bleeding has completely stopped. Maintain pelvic rest, no strenuous activities. Come back to the ED at any point symptoms worsen. Ensure you let your partner know he tested positive for STD and asked him to seek treatment. Scripts Azithromycin (AZITHROMYCIN TABLET) 500 Mg Tablet 4 TAB PO DAILY, #4 TAB 0 Refills Prov: TANJA LEDEZMA APRN 09/03/21 Cephalexin (CEPHALEXIN) 500 Mg Tablet 1 TAB PO BID, #14 TAB Prov: TANJA LEDEZMA APRN 09/03/21 TANJA LEDEZMA APRN Sep 03, 2021 18:53 PIERRE WITT I DO Sep 04, 2021 02:55
[2021-09-03 19:05] LABS: BASO % 1 % (0-3); EOS # 0.2 x10^3/uL (0.0-0.7); EOS % 4 % (0-3); HEMATOCRIT 38.4 % (36.0-47.0); HEMOGLOBIN 12.6 g/dL (12.0-15.5); LYMPH # 2.1 x10^3/uL (1.0-4.8); LYMPH % 31 % (24-48); MEAN CORPUSCULAR HEMOGLOBIN 28 pg (25-35); MEAN CORPUSCULAR HGB CONC 33 g/dL (31-37); MEAN CORPUSCULAR VOLUME 86 fL (79-100); MONO # 0.5 x10^3/uL (0.0-1.1); MONO % 8 % (0-9); NEUT # 3.9 x10^3/uL (1.8-7.7); NEUT % 57 % (31-73); PLATELET COUNT 399 x10^3/uL (140-400); RED BLOOD COUNT 4.46 x10^6/uL (3.50-5.40); RED CELL DISTRIBUTION WIDTH 16.2 % (11.5-14.5); WHITE BLOOD COUNT 6.8 x10^3/uL (4.0-11.0)
[2021-09-03 19:05] LABS: BACTERIA,URINE MANY /HPF (0-FEW); RBC,URINE 0 /HPF (0-2); TRICHOMONAS,URINE PRESENT; WBC,URINE TNTC /HPF (0-4)
[2021-09-03 19:29] LABS: CREATININE 0.7 mg/dL (0.6-1.0); GFR 120.6; POTASSIUM 3.3 mmol/L (3.5-5.1)
[2021-09-03] MEDS ORDERED: cefTRIAXone IV Push 1 GM VIAL. IVP ONE (19:30)
[2021-09-03] MEDS ORDERED: metroNIDAZOLE 500 MG TABLET PO ONE (19:30)
[2021-09-03 19:35] LABS: ALBUMIN 3.2 g/dL (3.4-5.0); ALBUMIN/GLOBULIN RATIO 0.7 (1.0-1.7); TOTAL BILIRUBIN 0.3 mg/dL (0.2-1.0)
[2021-09-03 19:36] LABS: U PREG PATIENT POSITIVE (NEG)
[2021-09-03] MEDS ORDERED: AZIT500T4 PO (20:22)
[2021-09-03] MEDS ORDERED: CEPH500T PO (20:22)
--- NOTE | 2021-09-03 20:24 | RAD ---
EXAMINATION: US OB TRANSVAGINAL (FIRST TRIMESTER PELVIC ULTRASOUND) CLINICAL HISTORY: Vaginal bleeding and abdominal pain in TECHNIQUE: Sonography of the pelvis was performed by transabdominal and transvaginal techniques. COMPARISON: None. FINDINGS: Uterine and ovarian measurements are based on technologist reporting as not all measurements are docu mented on the available images. Uterus: - Orientation: Anteverted - Size: 10.7 x 7.0 x 5.8 cm - Myometrium: 2 fibroids measuring up to 1.3 cm. - Cervix: Unremarkable Gestation: - Intrauterine Gestational Sac: Single present; Amniotic fluid volume subjectively within normal limi ts - Yolk Sac: Present - Embryo: Single present - [place] Rump Length: 1.1 cm, corresponding gestational age 7 weeks 1 days - Heart Rate: 155 bpm - Perigestational Hemorrhage: Absent Right Ovary: - Size: 3.2 x 1.3 x 1.5 cm - Normal sonographic appearance and blood flow. Left Ovary: - Size: 2.5 x 2.4 x 2.2 cm - Normal sonographic appearance and blood flow. Pelvic Free Fluid: Absent IMPRESSION: Single, live intrauterine gestation. Estimated Gestational Age: 7 weeks 1 day with estimated date of delivery 04/21/2022 by crown rump [place] th. Electronically signed by: Lokesh Orozco DO (09/03/2021 8:22 PM) [facility]
[2021-09-03 21:03] VITALS: BP 146/76
[2021-09-05 20:11] LABS: GC PROBE Negative (Negative)
== END 2021-09-03 20:45 | disposition home or self-care (01) ==
LOC: ER 18:07
DX: O20.0 Threatened abortion (principal); O23.41 Unspecified infection of urinary tract in pregnancy, first trimester; O98.311 Other infections with a predominantly sexual mode of transmission complicating pregnancy, first trimester; A59.01 Trichomonal vulvovaginitis; Z3A.01 Less than 8 weeks gestation of pregnancy; Z88.5 Allergy status to narcotic agent; Z88.6 Allergy status to analgesic agent
CPT/HCPCS: 36415; 76817; 80053; 81001; 81025; 84702; 85025; 87077; 87086; 87186; 87491; 87591; 96374; 99284; J0696; Q0111; 99283

== ENCOUNTER 2021-09-08 00:23 | Emergency (ER) | payer SELFPAY ==
[~2021-09-08] VITALS: Ht 160 cm; Wt 115.4 kg
[~2021-09-08 00:23] MED LIST changes: +AZIT500T4 PO
--- NOTE | 2021-09-08 01:02 | PHYS DOC ---
Past Medical History Past Medical History: Arthritis, Depression, Ectopic , Other Additional Past Medical Histor: ULCERS, SCOLIOSIS Past Surgical History: Other Additional Past Surgical Histo: L fallopian tube removed Smoking Status: Never Smoker Alcohol Use: None Drug Use: Marijuana General Adult EDM: Chief Complaint: VAGINAL BLEEDING HPI: HPI: Patient is a 30 year old female here with vaginal bleeding and lower abdominal cramping. She is approximately 7 weeks . She reports that she felt a small amount of blood when she went to the bathroom. She passed a few small clots. She denies any severe abdominal cramping. She denies any dizziness. He does report some mild nausea. She had 1 episode of vomiting here. She was seen here a few days ago, for the same symptoms, minus the bleeding, she has a confirmed IUP. She also had confirmed trichomoniasis and a UTI. She was treated with antibiotics. She has been adherent to pelvic rest, has not had intercourse. Review of Systems: Review of Systems: Constitutional: Denies fever or chills. [] HENT: Denies nasal congestion or sore throat. [] Respiratory: Denies cough or shortness of breath. [] Cardiovascular: Denies chest pain or edema. [] GI: Reports nausea and vomiting, vomiting only one time. Reports pelvic cramping. : Denies dysuria. Reports vaginal bleeding. Musculoskeletal: Denies back pain or joint pain. [] Neurologic: Denies headache, focal weakness or sensory changes. [] Psychiatric: Denies depression or anxiety. [] Heart Score: C/O Chest Pain: No Risk Factors: Risk Factors: DM, Current or recent (<one month) smoker, HTN, HLP, family history of CAD, obesity. Risk Scores: Score 0 - 3: 2.5% MACE over next 6 weeks - Discharge Home Score 4 - 6: 20.3% MACE over next 6 weeks - Admit for Clinical Observation Score 7 - 10: 72.7% MACE over next 6 weeks - Early Invasive Strategies Allergies: Allergies: Allergies Coded Allergies Type Severity Reaction Last Updated Verified acetaminophen Allergy Intermediate 09/03/21 Yes oxycodone Allergy Intermediate 09/03/21 Yes Physical Exam: PE: Constitutional: Well developed, well nourished, no acute distress, non-toxic appearance. [] HENT: Normocephalic, atraumatic Neck: Normal range of motion, no tenderness, supple, no stridor. [] Cardiovascular:Heart rate regular rhythm, no murmur [] Lungs & Thorax: Bilateral breath sounds clear to auscultation [] Abdomen: Obese, soft, nondistended, nontender to palpation. : No external lesions. Small amount of bleeding in the vaginal vault. There is a small clot in the external os. Os is closed. No tissue exposed. No brisk bleeding. No CMT. No tenderness to palpation on bimanual exam. Skin: Warm, dry, no erythema, no rash. [] Back: No tenderness, no CVA tenderness. [] Extremities: No tenderness, no cyanosis, no clubbing, ROM intact, no edema. [] Neurologic: Alert and oriented X 3, normal motor function, normal sensory funct ion, no focal deficits noted. [] Psychologic: Affect normal, judgement normal, mood normal. She is pleasant cooperative. EKG: EKG: [] Radiology/Procedures: Radiology/Procedures: IMAGING REPORT Signed PATIENT: DOLORES AGRAWAL LACCOUNT: [id number] : 1990 LOCATION: ER AGE: 30 SEX: F EXAM STATUS: REG ER ORD. PHYSICIAN: RODERICK CHEEK DO REASON: , vaginal bleeding PROCEDURE: OB <14 WKS W/TV First trimester OB ultrasound CLINICAL HISTORY: , vaginal bleeding. COMPARISON: OB ultrasound 09/03/2021 TECHNIQUE: transabdominal and endovaginal sonography was performed FINDINGS: An intrauterine gestational sac is present, normal in morphology. An embryo is identified . Cardiac activity is visualized and documented at a rate of 163 beats per minute. There is no subchorionic fluid collection. Mildly heterogeneous fibroid uterus. Based on a crown rump length averaging 1.79 cm, the estimated gestational age is 8 weeks 2 days. Estimated date of delivery is 04/18/2022. Right ovary: Nonvisualized Left ovary: 3.4 x 2.5 x 1.8 cm Normal left ovarian Doppler. There is no pelvic free fluid. IMPRESSION: Single viable intrauterine gestation with estimated sonographic gestational age of 8 weeks 2 days, with estimated due date of 04/18/2022. Electronically signed by: Alon Ordoñez MD (09/08/2021 4:01 AM) [facility] DICTATED and SIGNED BY: ALON ORDOÑEZ MD DATE: 09/08/21 [id number] Course & Med Decision Making: Course & Med Decision Making Pertinent Labs and Imaging studies reviewed. (See chart for details) I discussed the findings, differential diagnosis and plan of care with the patient. She is already confirmed positive blood type. She has a viable IUP with normal heart tones noted on ultrasound. No active or brisk or heavy bleeding noted at present. She did vomit once here, I offered to prescribe something to give her right now, she declines. She will take a prescription for discharge. She has an OB with whom she can follow-up. I told her to contact them on Friday for follow-up. Return precautions are given. She is to continue to adhere to pelvic rest, nothing per vagina. Dragon Disclaimer: Dragon Disclaimer: This electronic medical record was generated, in whole or in part, using a voice recognition dictation system. Departure Departure Impression: Primary Impression: Threatened in first trimester Disposition: 01 HOME / SELF CARE / HOMELESS Condition: STABLE Referrals: Di THOMAS MD (PCP) Patient Instructions: Threatened Miscarriage Additional Instructions: Return to the ER for more severe pain, temperature 100.4 or higher, uncontrolled vomiting, dehydration, if you notice severe heavy bleeding, passing clots or tissue, bleeding through a large pad every 30 minutes or more or for any other concerns. Please contact your OB to arrange for close follow-up and repeat blood work and repeat ultrasound. Adhere to strict pelvic rest, i.e. no intercourse, no tampons, nothing per vagina. Scripts Ondansetron Hcl (ZOFRAN) 4 Mg Tablet 4 MG PO PRN TID PRN for VOMITING, #20 TAB nausea/vomiting Prov: RODERICK CHEEK DO 09/08/21 RODERICK CHEEK DO Sep 08, 2021 01:02
[2021-09-08 02:00] LABS: BASO % 0 % (0-3); EOS # 0.3 x10^3/uL (0.0-0.7); EOS % 5 % (0-3); HEMATOCRIT 36.4 % (36.0-47.0); HEMOGLOBIN 11.8 g/dL (12.0-15.5); LYMPH # 1.7 x10^3/uL (1.0-4.8); LYMPH % 27 % (24-48); MEAN CORPUSCULAR HEMOGLOBIN 28 pg (25-35); MEAN CORPUSCULAR HGB CONC 32 g/dL (31-37); MEAN CORPUSCULAR VOLUME 87 fL (79-100); MONO # 0.9 x10^3/uL (0.0-1.1); MONO % 14 % (0-9); NEUT # 3.4 x10^3/uL (1.8-7.7); NEUT % 55 % (31-73); PLATELET COUNT 352 x10^3/uL (140-400); RED CELL DISTRIBUTION WIDTH 16.3 % (11.5-14.5); WHITE BLOOD COUNT 6.2 x10^3/uL (4.0-11.0)
[2021-09-08 02:07] LABS: CALCIUM 8.8 mg/dL (8.5-10.1); CREATININE 0.8 mg/dL (0.6-1.0); GFR 103.3; POTASSIUM 3.8 mmol/L (3.5-5.1)
--- NOTE | 2021-09-08 04:04 | RAD ---
First trimester OB ultrasound CLINICAL HISTORY: , vaginal bleeding. COMPARISON: OB ultrasound 09/03/2021 TECHNIQUE: transabdominal and endovaginal sonography was performed FINDINGS: An intrauterine gestational sac is present, normal in morphology. An embryo is identified . Cardiac activity is visualized and documented at a rate of 163 beats per minute. There is no subchorionic flu id collection. Mildly heterogeneous fibroid uterus. Based on a crown rump length averaging 1.79 cm, the estimated gestational age is 8 weeks 2 days. Est imated date of delivery is 04/18/2022. Right ovary: Nonvisualized Left ovary: 3.4 x 2.5 x 1.8 cm Normal left ovarian Doppler. There is no pelvic free fluid. IMPRESSION: Single viable intrauterine gestation with estimated sonographic gestational age of 8 weeks 2 days, wi th estimated due date of 04/18/2022. Electronically signed by: Alon Muñiz MD (09/08/2021 4:01 AM) [facility]
[2021-09-08 04:29] VITALS: BP 112/67
[2021-09-08] MEDS ORDERED: ONDA4TAB7 PO (04:31)
== END 2021-09-08 04:33 | disposition home or self-care (01) ==
LOC: ER 00:23
DX: O20.0 Threatened abortion (principal); Z3A.01 Less than 8 weeks gestation of pregnancy; Z88.5 Allergy status to narcotic agent; Z88.6 Allergy status to analgesic agent
CPT/HCPCS: 36415; 76801; 76817; 80048; 84702; 85025; 99285-25

== ENCOUNTER 2021-12-12 23:49 | Emergency (ER) | payer SELFPAY ==
[~2021-12-12] VITALS: Ht 160 cm; Wt 109.0 kg
[~2021-12-12 23:49] MED LIST changes: +ONDA4TAB7 PO
[2021-12-13] VITALS: BP 116/58
[2021-12-13] MEDS ORDERED: LIDOCAINE 1% Multi-Dose 20 ML VIAL. INJ ONE (00:15)
[2021-12-13] MEDS ORDERED: TRAM50TA PO (00:58)
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
== END 2021-12-13 01:07 | disposition home or self-care (01) ==
LOC: ER 23:49
DX: S61.212A Laceration without foreign body of right middle finger without damage to nail, initial encounter (principal); S51.811A Laceration without foreign body of right forearm, initial encounter; Z88.6 Allergy status to analgesic agent; Z88.5 Allergy status to narcotic agent; W25.XXXA Contact with sharp glass, initial encounter; Y93.89 Activity, other specified; Y92.89 Other specified places as the place of occurrence of the external cause; Y99.8 Other external cause status
CPT/HCPCS: 12002; 99282; J3490